=== PATIENT | male | born 1950 | race Caucasian/White ===

== ENCOUNTER 2018-03-23 12:00 | Emergency (ER) | payer MEDICARE ==
[2018-03-23 12:17] VITALS: RESP 18
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
[2018-03-23 13:51] LABS: Basophils % (A) 0 %; Eosinophils # (A) 0.1 k/uL (0-0.7); Eosinophils % (A) 1 %; HCT 42.6 % (39.0-53.0); HGB 14.7 gm/dL (13.0-17.5); Lymphocytes # (A) 1.4 k/uL (1.0-4.8); Lymphocytes % (A) 18 %; MCH 30.3 pg (25.0-35.0); MCHC 34.5 g/dL (31.0-37.0); MCV 87.8 fL (80.0-100.0); Monocytes # (A) 0.4 k/uL (0-1.0); Monocytes % (A) 6 %; Neutrophils # (A) 5.6 k/uL (1.3-7.7); Neutrophils % (A) 73 %; Platelet Count 203 k/uL (150-450); RBC 4.86 m/uL (4.30-5.90); RDW 13.6 % (11.5-15.5); WBC 7.7 k/uL (3.8-10.6)
[2018-03-23 13:54] LABS: VBG PH 7.32 (7.31-7.41)
[2018-03-23 14:04] LABS: ALT 33 U/L (21-72); AST 20 U/L (17-59); Albumin 4.4 g/dL (3.5-5.0); Alkaline Phosphatase 121 U/L (38-126); Anion Gap 15 mmol/L; Blood Urea Nitrogen 46 mg/dL (9-20); Calcium 8.8 mg/dL (8.4-10.2); Carbon Dioxide 20 mmol/L (22-30); Chloride 94 mmol/L (98-107); Magnesium 2.3 mg/dL (1.6-2.3); Potassium 5.7 mmol/L (3.5-5.1); Sodium 129 mmol/L (137-145); Total Bilirubin 0.8 mg/dL (0.2-1.3); Total Protein 7.1 g/dL (6.3-8.2)
[2018-03-23 14:07] LABS: Appearance,Urine Clear (Clear); Bilirubin,Urine Negative (Negative); Blood,Urine Negative (Negative); Color,Urine Light Yellow; Glucose,Urine (UA) 4+ (Negative); Ketones,Urine 1+ (Negative); Leukocyte Esterase,Urine Negative (Negative); Nitrite,Urine Negative (Negative); Protein,Urine Negative (Negative); Specific Gravity,Urine 1.023 (1.001-1.035); Urobilinogen,Urine <2.0 mg/dL (<2.0)
[2018-03-23] MEDS ORDERED: INSULIN REGULAR 100 UNIT/ML VIAL IV ONE (14:42)
[2018-03-23] MEDS ORDERED: SODIUM CHLORIDE 0.9% 2,000 ML IV ONE (14:42)
[2018-03-23 16:24] LABS: Glucose,Whole Blood 458 mg/dL (75-99)
[2018-03-23] MEDS ORDERED: INSULIN REGULAR 100 UNIT/ML VIAL SQ ONE (16:25)
[2018-03-23 18:07] LABS: Glucose,Whole Blood 339 mg/dL (75-99)
[2018-03-23 18:55] VITALS: BP 148/67; PULSE 74; TEMP 97.6
== END 2018-03-23 18:55 | disposition home or self-care (01) ==
LOC: EC 12:00
DX: E11.65 Type 2 diabetes mellitus with hyperglycemia (principal); E87.5 Hyperkalemia; F41.9 Anxiety disorder, unspecified; R23.9 Unspecified skin changes; I10 Essential (primary) hypertension; E07.9 Disorder of thyroid, unspecified; Z87.891 Personal history of nicotine dependence; Z79.82 Long term (current) use of aspirin; Z79.84 Long term (current) use of oral hypoglycemic drugs; Z79.899 Other long term (current) drug therapy
CPT/HCPCS: 36415; 80053; 81003; 82009; 82803; 83605; 83735; 85025; 93005; 96360; 96361; 99284

== ENCOUNTER → 2022-07-12 | Outpatient (CLI) | payer MEDICARE, OTHER ==
[2022-07-12 12:38] VITALS: BP 122/73; PULSE 92; RESP 18
--- NOTE | 2022-07-12 15:10 | P.PAINPG ---
PQRS Measure Charge Sheet Comment: HISTORY OF PRESENT ILLNESS: 71 yr old male as a referral from the [facility] presents today w severe and chronic R hand pain secondary to subcutaneous nodules for evaluation. Pt states his pain level is at 0/10 in intensity, occasional, tender in character, localized in the palms of his hands without radiation of pain. Pain is provoked as high as 8/10 when gripping his rifle during hunting. Palliated w Neurontin for his feet, rubbing hands. PMH: Anxiety, HTN, Hyperlipidemia, Hypothyroidism, NIDDM, PVD, PSH: Denies SH: Hx of service. FH: Non contributory All: NKDA Meds: See list REVIEW OF ORGAN SYSTEMS: CONSTITUTIONAL: No fevers or chills. No recent weight loss. NEUROLOGICAL: + numbness and tingling along the distal extremities. No seizure disorders or headaches. MUSCULOSKELETAL: + pain PSYCHIATRIC: Denies current depression or suicidal thoughts. Physical Examinations : Constitutional : Cooperative , not in acute distress . Neurologic : Cranial nerve II to XII intact. No focal neurological deficits. Psychiatric : alert & oriented x 3. Matching mood & appropriate affect. Judgment & insight intact. Musculoskeletal : Cervical Spine Motor strength in the deltoid and biceps: Normal right side. Normal Left side Motor strength biceps and the wrist extensors: Normal right side . Normal left side Motor strength in the triceps muscle: Normal right side. Normal left side Deep tendon reflexes: Normal at the biceps. Normal at Brachioradialis. Normal at triceps Vertebral body tenderness to deep palpation over Cervical facet loading test: positive bilaterally Spurling test: positive bilaterally Neck distraction test: positive bilaterally Bre sign: positive bilaterally Lumbar spine Motor strength lower extremities ,thigh and legs 5/5 Right side , 5/5 Left side Deep tendon reflexes : Normal Knee Jerk. Normal Ankle Jerk Vertebral body tenderness over Lumbar facet Loading Test: positive Right / positive Left Range of motion of the lumbar spine Flexion 30 degrees, extension 10 degrees Straight Leg Raise test: Left/ Right positive at degree Ronan test: positive right / positive left. Severe tenderness over the Sacroiliac joint on the Right / Left sides Gaenslen test: positive bilaterally Seated flexion test: positive bilaterally. Sacral spine : Severe tenderness over the Sacroiliac joint: right side / left side Range of motion: Flexion of the lumbar spine <60 degrees Range of motion: Extension of the lumbar spine <20 degrees Gaenslen's Test positive Keshawn's Test positive Ronan test: positive right side / left side Thigh Thrust Test Sacral Thrust Test Imaging: Right hand x-ray from 06/21/22 reviewed Assessment/ Plan : Right distal interphalangeal joint osteoarthroses, R hand subcutaneous nodules Recommendation of referral to broker in charge. As pt denies pain at this time, the underlying cause is most likely route of treatment plan. Differential diagnoses include rheumatoid arthritis, sarcoidosis and amyloidosis. Referral to Dr Greenwood (Rheumatology) and contact information provided. He may return to this clinic on an as needed basis. Risks, benefits of procedure discussed and patient verbalized understanding. Denies aspirin or anti- coagulant use or medical history of diabetes. Protocol for discontinuation/ continuation of medications otilio procedure discussed. All questions answered. I have spent greater than 30 minutes on patient care today. Dr Koch was available by phone for the evaluation of this patient. The time was used to review the medical records including relevant urine studies and Prescription history (MAPs), review of the available imaging, evaluation and examination of the patient, coordination of care with the medical staff and if applicable referring physicians, as well as creation of the medical record PQRS Narrative: Smoking Status Former smoker Home Medications: Ambulatory Orders Aspirin EC [Ecotrin Low Dose] 81 mg PO DAILY 03/23/18 Atorvastatin [Lipitor] 20 mg PO HS 03/23/18 Cholecalciferol [Vitamin D3] 400 unit PO DAILY 03/23/18 Gabapentin [Neurontin] 300 mg PO HS 03/23/18 Levothyroxine Sodium [Synthroid] 50 mcg PO DAILY 03/23/18 Multivit-Min/FA/Lycopen/Lutein [Centrum Silver Tablet] 1 tab PO DAILY 03/23/18 [place]-3 Fatty Acids [[place]-3] 1,000 mg PO DAILY 03/23/18 Vit C/E/Zn/Coppr/Lutein/Zeaxan [Preservision Areds 2 Softgel] 1 cap PO BID 03/23/18 Zolpidem [Ambien] 10 mg PO HS 03/23/18 lisinopriL [Zestril] 10 mg PO HS 03/23/18 metFORMIN HCL [Glucophage] 1,000 mg PO BID 30 Days #60 tab 03/23/18 metFORMIN HCL [Glucophage] 500 mg PO BID 03/23/18 Controlled Substance Measures - Controlled Substance Measures Is patient prescribed a controlled substance at discharge?: No
== END ==
LOC: PNWHC3 11:58
PROVIDERS: ATTEND Specialist
DX: M72.0 Palmar fascial fibromatosis [Dupuytren] (principal); Z87.891 Personal history of nicotine dependence
CPT/HCPCS: 99202

== ENCOUNTER 2023-12-27 07:06 | Day surgery (SDC) | payer OTHER ==
[2023-12-23 12:11] VITALS: BMI 20.2
[~2023-12-27 07:06] MED LIST: SODIUM CHLORIDE 0.9% 1,000 ML IV SCH
[2023-12-27 07:46] LABS: Glucose,Whole Blood 162 mg/dL (70-110)
[2023-12-27 08:10] VITALS: BP 159/70; RESP 16; TEMP 97.6
[2023-12-27] MEDS: SODIUM CHLORIDE 0.9% 500 ML 500 ML IV ONE (08:10)
[2023-12-27] MEDS: SODIUM CHLORIDE 0.9% 1,000 ML IV ONE (08:10)
[2023-12-27 09:10] LABS: African American GFR (CKD) 66 (>60 ml/min/1.73 sqM); Anion Gap 11 mmol/L; Blood Urea Nitrogen 41 mg/dL (9-20); Calcium 9.1 mg/dL (8.4-10.2); Carbon Dioxide 25 mmol/L (22-30); Chloride 103 mmol/L (98-107); Glucose 177 mg/dL (74-99); Non-African American GFR(CKD) 57 (>60 ml/min/1.73 sqM); Potassium 4.1 mmol/L (3.5-5.1); Sodium 139 mmol/L (137-145)
[2023-12-27] MEDS: IOPAMIDOL-370 100ML BTL INJ ONE (09:32)
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
== END 2023-12-27 09:52 ==
LOC: CATHEP 07:06
PROVIDERS: ATTEND Internal Medicine Clinical Cardiac Electrophysiology
DX: I44.7 Left bundle-branch block, unspecified (principal); I87.1 Compression of vein; I10 Essential (primary) hypertension; E11.9 Type 2 diabetes mellitus without complications; F17.210 Nicotine dependence, cigarettes, uncomplicated; Z82.49 Family history of ischemic heart disease and other diseases of the circulatory system; Z79.82 Long term (current) use of aspirin; Z79.899 Other long term (current) drug therapy
CPT/HCPCS: 36005; 75820; 80048; Q9967

== ENCOUNTER 2024-02-06 08:50 | Day surgery (SDC) | payer OTHER ==
[2024-02-06 09:27] LABS: Glucose,Whole Blood 201 mg/dL (70-110)
[2024-02-06] MEDS: INSULIN ASPART (NovoLOG) 100 UNIT/ML VIAL SQ SCH (10:27)
[2024-02-06] MEDS ORDERED: KETAMINE HCL IN 0.9 % NACL 50 MG/5 ML SYRINGE ONE (12:58)
[2024-02-06] MEDS ORDERED: fentaNYL (PF) 50 MCG/ML 2 ML AMP ONE (12:58)
[2024-02-06] MEDS ORDERED: MIDAZOLAM 2 MG/2 ML VIAL ONE (12:58)
[2024-02-06] MEDS ORDERED: LIDOCAINE 1% INJ 10MG/ML (20 ML MDV) ONE (13:36)
[2024-02-06] MEDS: SODIUM CHLORIDE 0.9% 1,000 ML IV SCH (13:49)
[2024-02-06] MEDS: LIDOCAINE 1% INJ 10MG/ML (20 ML MDV) SQ ONE ×2 (14:05→14:20)
[2024-02-06] MEDS: IOPAMIDOL-370 100ML BTL INJ ONE (15:00)
[2024-02-06] MEDS: ceFAZolin 1 GM in SODIUM CHLORIDE 0.9% IRRIG BTL 250 ML IRRIGATION PRN (16:11)
[2024-02-06 17:39] LABS: Glucose,Whole Blood 140 mg/dL (70-110)
[2024-02-06] MEDS: ACETAMINOPHEN IV (For NPO) 1,000 MG in EMPTY BAG 1 BAG IVPB ONE (18:53)
--- NOTE | 2024-02-06 20:21 | P.EPPROC ---
- EP Procedure Note Electrophysiology Procedure Note: Diagnosis Cardiomyopathy, chronic, nonischemic Congestive heart failure [place] Heart Association class 2-3 Wide QRS left bundle branch block pattern On guide line directed medical treatment for greater than 3 months Procedure: Biventricular ICD implantation for management of risk of sudden cardiac and congestive heart failure Result: Successful biventricular ICD implantation, Atrial lead: Medtronic 52 cm, atrial pacing impedance 513 ohms, P waves 1.8 mV and pacing threshold 0.5 V at point 4 ms RV ICD lead: Pacing impedance 475 ohms, high-voltage impedance 75 ohms, R waves 13 mV and pacing threshold 0.5 V at point 4 ms Left ventricular lead: Large posterior lateral vein with high thresholds greater than 5 V all along along with diaphragmatic stimulation at 5 V. Despite being an angiographically excellent vein, from an electrical standpoint it was none usable for biventricular pacing. No other veins available. Therefore left bundle pacing was performed Conduction system pacing lead: Pacing impedance 665 ohms, pacing threshold 0.5 V at 0.4 ms. Stimulus to peak of V6 was less than 60 ms, QR pattern in V1, QRS width less than 144 ms Procedure details: Patient was brought to the EP lab in a fasting state. Written informed consent was obtained prior to the procedure. Options, pros and cons, benefits and risks and complications discussed with patient in detail prior to the procedure (shared decision making) previously. Importance of continuing medical treatment emphasized previously. Alternatives discussed previously. Left upper extremity venogram performed. 15 mL IV dye injected in the left arm. Patent axillary/subclavian vein The left pectoral area was prepped and draped as a protocol. IV antibiotics administered 1% lidocaine was used for local anesthesia. A 4 cm incision was made parallel to the deltopectoral groove, about 1.5 cm medial to it. The incision was carried down to the level of the pectoralis muscle and the subfascial pocket was made. Hemostasis was assured. The axillary vein access was obtained. Appropriately sized into to see sheaths were placed. ICD lead implanted in the right ventricle and screwed in. ICD lead tested for threshold, sensing, impedances and tested with high output pacing for diaph ragmatic stimulation. Negative diaphragmatic stimulation Atrial lead placed in the right atrial appendage and tested for threshold, sensing, impedance, and tested with high output pacing. Phrenic nerve stimulation negative Large posterior lateral vein noted but completely unusable on account of high thresholds greater than 5 V at point 5 ms along with diaphragmatic stimulation at 5 V, all along the vein. No other available vein. No lateral vein available Conduction system pacing lead placement: There for left bundle pacing was performed successfully Leads secured to the underlying pectoral muscle after removing sheaths . Pocket irrigated with antibiotic solution. Antibiotic pouch placed Leads connected to the biventricular ICD generator. Wound closed in 3 layers and dressed per protocol Biventricular ICD interrogated and programmed. Appropriate pacing parameters, antitachycardia therapies with antitachycardia pacing cardioversion defibrillations programmed. AV delay and biventricular pacing parameters programmed to achieve optimal physiologic pacing Patient tolerated the procedure well without any acute complications. See scanned device report in EMR for lead details This was a long procedure on account of mapping of the left-sided veins. No usable vein found Detailed mapping of the left bundle performed at several sites and finally left bundle pacing was performed successfully. Excellent parameters This position took longer than the usual amount of time on account of this
[2024-02-06 21:05] LABS: Glucose,Whole Blood 305 mg/dL (70-110)
[2024-02-06] MEDS: GABAPENTIN 300 MG CAP PO SCH (21:30)
[2024-02-06] MEDS: glipiZIDE 10 MG TAB PO SCH (21:30)
[2024-02-06] MEDS: ATORVASTATIN 20 MG TAB PO SCH (21:30)
[2024-02-06] MEDS: ASPIRIN 81 MG PO SCH (21:30)
[2024-02-06] MEDS: lisinopriL 20 MG TAB PO SCH (21:32)
[2024-02-06] MEDS: DAPAGLIFLOZIN PROPANEDIOL 10 MG TABLET PO SCH (21:32)
[2024-02-07] MEDS: ACETAMINOPHEN TAB 325 MG TAB PO PRN (02:38)
[2024-02-07 06:09] LABS: Glucose,Whole Blood 108 mg/dL (70-110)
[2024-02-07] MEDS: LEVOTHYROXINE 50 MCG TAB PO SCH (06:27)
[2024-02-07 07:43] VITALS: BP 117/62; PULSE 63; RESP 16; TEMP 97.8
--- NOTE | 2024-02-07 07:55 | XR ---
EXAMINATION TYPE: XR chest 2V DATE OF EXAM: 02/07/2024 COMPARISON: 01/19/2012 HISTORY: 73-year-old male being placement check TECHNIQUE: Frontal and lateral views FINDINGS: Left anterior chest wall AICD generator with 3 leads including a right atrial and 2 right ventricular leads. Heart normal size. Aorta shows mild atherosclerotic arch calcifications. No appreciable pneum othorax. No consolidation or pleural effusion. There is offset at the right AC joint suggesting seque la of prior trauma or if clinically correlate. IMPRESSION: 3-lead AICD generator along the anterior left chest wall with a single right atrial lead and 2 right ventricular leads. No appreciable pneumothorax.
[2024-02-07] MEDS: METOPROLOL SUCCINATE (ER) 50 MG TAB.ER.24H PO SCH (08:42)
[2024-02-07] MEDS: LINAGLIPTIN 5 MG TABLET PO SCH (08:42)
[2024-02-07] MEDS ORDERED: METOPROLOL TARTRATE 50 MG TAB PO SCH (09:00)
[2024-02-07 09:38] LABS: African American GFR (CKD) 79 (>60 ml/min/1.73 sqM); Anion Gap 7 mmol/L; Blood Urea Nitrogen 29 mg/dL (9-20); Carbon Dioxide 23 mmol/L (22-30); Chloride 110 mmol/L (98-107); Glucose 156 mg/dL (74-99); Non-African American GFR(CKD) 68 (>60 ml/min/1.73 sqM); Sodium 140 mmol/L (137-145)
[2024-02-07 09:39] LABS: Potassium 4.6 mmol/L (3.5-5.1)
[2024-02-07 12:10] LABS: Glucose,Whole Blood 201 mg/dL (70-110)
--- NOTE | 2024-02-07 16:15 | P.EPPROC ---
- EP Procedure Note Electrophysiology Procedure Note: Patient is doing well postoperatively. He underwent a biventricular ICD yesterday with left bundle pacing ICD site is healed well Minimal hematoma Denies any chest discomfort dizziness lightheadedness nausea shortness of breath Blood pressure 139/70 mmHg heart rate in the 80s at the examination is normal Heart sounds S1-S2 normal no murmurs Breath sounds are clear The chest x-ray was reviewed and the left bundle lead is in stable position as the atrial and RV leads His device interrogation is within normal limits Impression Nonischemic cardiomyopathy with class II CHF and left bundle branch block morphology Large posterior lateral vein but no other LV veins available for lead implantation However high thresholds greater than 5 V along the entire posterolateral vein along with diaphragmatic stimulation Unusable posterior lateral LV vein Therefore a left bundle lead was implanted successfully Twelve-lead EKG shows a very narrow QRS with a very short stimulus to peak of V6 of about 60 ms Paced QRS about 130-140 ms I had started Entresto but [facility]. I am not sure if it was on account of renal issues or hyperkalemia He will get me the labs results when he sees me Suggest maximize heart failure therapy including beta-barak therapy now Follow-up in the device clinic in 7 to 10 days
[2024-02-08] MEDS ORDERED: metFORMIN 500 MG TAB PO SCH (21:00)
== END 2024-02-07 14:06 | disposition home or self-care (01) ==
LOC: CATHEP 08:50 → 6NMEDSUR 17:29 → CATHEP 02-07 14:06
PROVIDERS: ATTEND Internal Medicine Clinical Cardiac Electrophysiology
DX: I42.8 Other cardiomyopathies (principal); I50.9 Heart failure, unspecified; I44.7 Left bundle-branch block, unspecified; Z79.82 Long term (current) use of aspirin; Z79.899 Other long term (current) drug therapy
CPT/HCPCS: 33225; 33249; 80048; 83735; 71046; C1769 ×3; C1892 ×2; C1730; C1887; C1898; C1895; C1882; J0690 ×2; J2001; J0131; Q9967

== ENCOUNTER 2024-04-04 09:39 | Emergency (ER) | payer OTHER ==
[2024-04-04 10:01] VITALS: TEMP 98
[2024-04-04 10:02] LABS: Glucose,Whole Blood 342 mg/dL (70-110)
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
[2024-04-04 10:51] LABS: Basophils # (A) 0.1 k/uL (0-0.2); Basophils % (A) 1 %; Eosinophils # (A) 0.3 k/uL (0-0.7); Eosinophils % (A) 4 %; HCT 48.4 % (39.0-53.0); HGB 15.9 gm/dL (13.0-17.5); Lymphocytes # (A) 1.3 k/uL (1.0-4.8); Lymphocytes % (A) 15 %; MCH 30.5 pg (25.0-35.0); MCHC 32.8 g/dL (31.0-37.0); MCV 92.9 fL (80.0-100.0); Mean Platelet Volume 9.4; Monocytes # (A) 0.6 k/uL (0-1.0); Monocytes % (A) 7 %; Neutrophils # (A) 6.2 k/uL (1.3-7.7); Neutrophils % (A) 72 %; Platelet Count 136 k/uL (150-450); RBC 5.21 m/uL (4.30-5.90); RDW 13.5 % (11.5-15.5); WBC 8.5 k/uL (3.8-10.6)
[2024-04-04] MEDS: SODIUM CHLORIDE 0.9% 1,000 ML IV STA (10:58)
--- NOTE | 2024-04-04 11:20 | XR ---
EXAMINATION TYPE: XR chest 2V DATE OF EXAM: 04/04/2024 COMPARISON: 02/07/2024 HISTORY: Shortness of breath TECHNIQUE: Frontal and lateral views of the chest are obtained. FINDINGS: Scattered senescent parenchymal changes noted. Hyperinflation compatible with COPD. No evidence for infiltrate. No evidence for atelectasis. Heart size is stable. Mediastinal structures are stable and grossly unremarkable. No evidence for hilar prominence. Degenerative changes dorsal spine. IMPRESSION: 1. No evidence for acute pulmonary disease.
[2024-04-04 12:02] LABS: Appearance,Urine Clear (Clear); Bilirubin,Urine Negative (Negative); Blood,Urine Negative (Negative); Color,Urine Colorless; Glucose,Urine (UA) 4+ (Negative); Ketones,Urine Negative (Negative); Leukocyte Esterase,Urine Negative (Negative); Nitrite,Urine Negative (Negative); PH, Urine 6.5 (5.0-8.0); Protein,Urine Negative (Negative); Specific Gravity,Urine 1.016 (1.001-1.035); Urobilinogen,Urine <2.0 mg/dL (<2.0)
[2024-04-04 13:39] LABS: ALT 20 U/L (4-49); African American GFR (CKD) 70 (>60 ml/min/1.73 sqM); Albumin 4.6 g/dL (3.5-5.0); Anion Gap 14 mmol/L; Blood Urea Nitrogen 55 mg/dL (9-20); Calcium 8.1 mg/dL (8.4-10.2); Carbon Dioxide 18 mmol/L (22-30); Chloride 101 mmol/L (98-107); Glucose 412 mg/dL (74-99); Non-African American GFR(CKD) 61 (>60 ml/min/1.73 sqM); Phosphorus 4.7 mg/dL (2.5-4.5); Sodium 133 mmol/L (137-145); Total Bilirubin 0.8 mg/dL (0.2-1.3); Total Protein 7.2 g/dL (6.3-8.2)
[2024-04-04 13:41] LABS: AST 31 U/L (17-59); Alkaline Phosphatase 57 U/L (38-126); Magnesium 2.8 mg/dL (1.6-2.3); Potassium 5.2 mmol/L (3.5-5.1)
[2024-04-04] MEDS: INSULIN ASPART (NovoLOG) 100 UNIT/ML VIAL SQ ONE (14:10)
[2024-04-04 14:46] LABS: Glucose,Whole Blood 317 mg/dL (70-110)
[2024-04-04 14:56] VITALS: BP 106/59; PULSE 67; RESP 16
== END 2024-04-04 14:56 | disposition home or self-care (01) ==
LOC: EC 09:39
DX: E11.65 Type 2 diabetes mellitus with hyperglycemia (principal); E78.5 Hyperlipidemia, unspecified; I10 Essential (primary) hypertension; Z87.891 Personal history of nicotine dependence; Z11.52 Encounter for screening for COVID-19; Z79.899 Other long term (current) drug therapy
CPT/HCPCS: 36415; 71046; 80053; 81003; 82009; 83605; 83735; 84100; 85025; 87636; 93005; 96360; 99284

== ENCOUNTER 2024-04-10 07:00 | Day surgery (SDC) | payer OTHER ==
[2024-04-10] MEDS ORDERED: SODIUM CHLORIDE 0.9% 1,000 ML BAG ONE (16:00)
[2024-04-10] MEDS ORDERED: PROPOFOL 10 MG/ML 20 ML VIAL IV ONE ×2 (16:24)
== END 2024-04-10 17:34 ==
LOC: CATHEP 07:00
PROVIDERS: ATTEND Internal Medicine Clinical Cardiac Electrophysiology
DX: R94.39 Abnormal result of other cardiovascular function study
CPT/HCPCS: 93642